=== PATIENT | female | born 1950 | race African-American/Black ===

== ENCOUNTER 2025-04-14 16:19 | Inpatient (IN) | payer MEDICARE, SELFPAY ==
[2025-04-14] VITALS (16 sets, daily range): BP systolic 164–185; BP diastolic 72–81; PULSE 95–109; RESP 18–29; TEMP 37.5–37.7; O2SAT 91–99; BMI 39.8; BMI 39.9
--- NOTE | ~2025-04-14 | XR_ITS ---
CHEST RADIOGRAPH, PA AND LATERAL CLINICAL HISTORY: productive cough . COMPARISON: None available TECHNIQUE: PA and lateral views of the chest. FINDINGS The cardiomediastinal silhouette is unremarkable. The lungs are clear. IMPRESSION: No focal infiltrate or effusion. Reviewed, dictated and finalized at location A.
--- NOTE | ~2025-04-14 | CT_ITS ---
EXAMINATION: CT abdomen pelvis wo con DATE: 04/14/2025 17:09 INDICATION: left flank pain, LLQ abd pain TECHNIQUE: Computed tomography (CT) of the abdomen and pelvis was performed without intravenous contr ast. Automated exposure control and iterative reconstruction technique were employed. The dose-length product was 489.03 mGy-cm. COMPARISON: 05/08/2006. FINDINGS: Lower thorax: Mitral and aortic calcification. Liver: Normal. Biliary/Gallbladder: Gallbladder is normal. No bile duct dilation. Pancreas: No mass or duct dilation. Spleen: Normal. Adrenals:No mass. Kidneys: No suspicious mass, obstructing stone, or hydronephrosis. Right inferior renal cortical scar ring. Small exophytic right lower pole cyst. Mild left perinephric stranding. GI tract: No small or large bowel dilation. Normal appendix. Diverticulosis without diverticulitis. Mesentery/Peritoneum: No ascites, mass, or free air. Retroperitoneum: No mass. Atherosclerotic calcifications of intra-abdominal arterial vessels. Pelvis: Normal bilateral ovaries. Uterine calcification likely representing an old fibroid. Nondisten ded urinary bladder. Asymmetric anterolateral bladder wall thickening. Intramural bladder wall fat. Soft Tissues: Moderate fat-containing periumbilical and small foci containing umbilical hernias. The umbilical hernia contains a small portion of partially herniated large bowel. Bones: No acute osseous finding. IMPRESSION: No CT evidence of nephrolithiasis or obstructive uropathy. Mild left perinephric stranding, consider pyelonephritis in the differential. Fat-containing umbilical and periumbilical hernias, with partial herniation of a small portion of lar ge bowel into the umbilical hernia, without signs of inflammation or obstruction. Suggestion of asymmetric bladder wall thickening, consider referral for cystoscopy to exclude a mass. Reviewed, dictated and finalized at location K. IMPRESSION: No CT evidence of nephrolithiasis or obstructive uropathy. Mild left perinephric stranding, consider pyelonephritis in the differential. Fat-containing umbilical and periumbilical hernias, with partial herniation of a small portion of large bowel into the umbilical hernia, without signs of infl ammation or obstruction. Suggestion of asymmetric bladder wall thickening, consider referral for cystosc opy to exclude a mass.
--- OUTSIDE RECORDS SUMMARY | 2025-04-14 16:21 | XMS_ITS | Clinical Summary ---
Author Organization [facility] Address [address] [place] [address] Care Team Providers Care Bundler Seasonal Greenery Name Role Phone Sohail Varner MD Primary Care Provider Sharonda roberts Source Comments [facility],non-owned Affiliates and Associated Physician Practices is amultiple site organization consisting of ambulatory clinics and hospital sitesin [place], [place]. This disclosure is being madepursuant to the Care Everywhere program and may not contain all information available regarding this patient. Last updated 18.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 Gender Identity Not on file Sexual Orientation Not on file Plan of Treatment Health Maintenance Due Date Last Done Comments BONE DENSITY TESTING 1950 COLOGUARD (AGES 45-75) - COL ON CA SCREENING 1952 COLON MONITORING 1952 COLONOSCOPY - COLON CA SCREENING 1952 CT COLONOGRAPHY - COLON CA SCREENING 1952 Colorectal Cancer Screening 1952 FIT - COLON CA SCREENING 1952 FLEX SIG - COLON CA SCREENING 1952 LIPID TESTING 1952 MAMMOGRAM 1952 HEPATITIS C SCREENING 11/18/1970 DTAP/TDAP/TD VACCINES (1 - Tdap) 11/23/1971 PNEUMOCOCCAL VACCINE 50+ (1 of 1 - PCV) 2002 ZOSTER VACCINE (1 of 2) 2002 COVID-19 VACCINE ( - 2023-2 5 season) 2024 DEPRESSION SCREENING 09/17/2024 INFLUENZA VACCINE (#1) 2025 Respiratory Syncytial Virus (RSV) Vaccine Pt: or over 60 yrs (1 - 1-dose 75+ series) 11/23/2027 HEPATITIS B VACCINE Aged Out No longe r eligible based on patient's age to complete this topic HIB VACCINE Aged Out No longer eligi ble based on patient's age to complete this topic HPV VACCINE Aged Out No longer eligi ble based on patient's age to complete this topic MENINGOCOCCAL (Group B) VACC INE SHARED DECISION-MAKING Aged Out No longer eligibl e based on patient's age to complete this topic MENINGOCOCCAL GROUPS A/C/Y/W VACCINE Aged Out No longer eligible b ased on patient's age to complete this topic Care Teams Bundler Seasonal Greenery Relationship Specialty Start Date End Date Sohail Varner MD PCP - General Internal Medicine 09/20/10
--- OUTSIDE RECORDS SUMMARY | 2025-04-14 16:21 | XMS_ITS | Continuity of Care Document ---
Author Organization [facility] Address [address] [place] [address] Phone Care Team Providers Care Kaiawhina Kura Ka[place]apa Maori Name Role Phone Woods OD, John Unavailable Unavailable Procedures Procedure Date Office/outpatient Visit, Est Contact Lens Check Contact Lens Check Contact Lens Hydrophilic, Spherical Tax - Medical No Charge Glasses Check No Charge Contact Lens Check No Charge Contact Lens Check No Charge Contact Lens Check No Charge Contact Lens Check Advance Directives Directive Yes / No Effective Date File Name No Information Encounters Encounter Description Practice Location Reason(s) For Visit Diagnoses Date Provider Providers Copied on Encounter Office/outpat ient Visit, Est [facility], [address] [place] [address] [address], [place], [place], [id number], [place] tel:[phone] [facility] No Information 4-201 0 Woods OD John. [address] , [address] [facility], [place], [address], [place]. tel:[phone] [facility], [address] [place] [address] [address], [place], [place], [address], [place] tel:[phone] [facility] No Information 0-201 0 Woods OD John. [address] , [address], [place], [address], [place]. tel:[phone] [facility], [address] [place] [address] [address], [place], [place], [address], tel:[phone] [facility] No Information Dec-1 7-200 9 Woods OD John. [address] , [address], [place], [place], [facility], [place]. tel:[phone] [facility], [address] [place] [address] [address], [place], [place], [address], [place] tel:[phone] [facility] No Information Sep-0 3-200 9 Woods OD John. [address] , [address], [place], [facility], [place]. tel:[phone] [facility], [address] [place] [address] [address], [place], [place], [address], [place] tel:[phone] [facility] No Information Aug-2 7-200 9 Woods OD John. [address] , [address], [place], [facility], [place]. tel:[phone] [facility], [address] [place] [address] [address], [place], [place], [address], [place] tel:[phone] [facility] No Information Isacc-0 2-200 9 Woods OD John. [address] , [address], [place], [facility], [place]. tel:[phone] [facility], [address] [place] [address] [address], [place], [place], [address], [place] tel:[phone] [facility] No Information May-0 1-200 9 Woods OD John. [address] , [address], [place], [facility], [place]. tel:[phone] [facility], [address] [place] [address] [address], [place], [place], [address], [place] tel:[phone] [facility] No Information 4-200 9 Woods OD John. [address] , [address], [place], [address], [place]. tel:[phone] Family History Family Member Type Diagnosis Age At Onset No Information Payers Payer name Insurance type Covered green party ID Authoriza tion(s) No Information Social History Type Description Quantity Date Captured Comments Sex Female Smoking Status No Information Chief Complaint And Reason For Visit No Information Reason For Referral Reason For Referral No Information History Of Present Illness Encounter Date Complaint History Of Prese nt Illness No Information Functional Status Date Functional Assessmen t No Information Instructions Date Instruction Additional Infor mation No Information Assessments Type Assessment Date No Information Patient Care Teams Name Effective Dates (start - stop) Status Members No Information
--- NOTE | 2025-04-14 16:36 | ED_ITS ---
HPI - Female Genitourinary General Chief complaint: Urogenital-Female <Mone García PA-C - Last Filed: 04/14/25 16:38> Stated complaint: hematuria <Mone García PA-C - Last Filed: 04/14/25 16:38> Time Seen by Provider: 04/14/25 17:32 <Mone García PA-C - Last Filed: 04/14/25 16:38> Focused HPI: 74 y/o F with a hx of HTN presents emergency department with at bedside for left flank pain/left lower quadrant abdominal pain, josep colored urine, nausea, cough for 1 day. Patient states the pain in her left flank radiates to her left lower quadrant and describes it as a cramping sensation. She is concerned she may have urinary tract infection. Also states her urine is dark in color but cannot tell if there is any blood. She denies dysuria. She is reporting a productive cough as well. States she has had a low-grade temperature at home with her T-max being 100.2. She has not taken any antipyretics or pain medications. No history of kidney stones. GENERAL: Well-appearing, well-nourished, and in no acute distress. HEAD: Normocephalic, atraumatic. CHEST: Clear to auscultation. ?No respiratory distress. ABD: Tenderness to palpation of the left CVA region. Abdomen is soft and nontender HEART: Regular rate and rhythm.? NEURO: ?Alert and oriented x3. Patient screened in triage and initial orders placed.? ?Additional care and disposition to be based upon?diagnostic testing and treatment. <Mone García PA-C - Last Filed: 04/14/25 16:38> History of Present Illness HPI Narrative: Agree with HPI. Patient has also been having dyspnea on exertion but no chest pain for <Sarkis Rodriguez MD - Last Filed: 04/14/25 19:26> Related Data Allergies/Adverse reactions: Allergies Allergy/AdvReac Type Severity Reaction Status Date / Time No Known Allergies Allergy Verified 04/14/25 16:50 <Mone García PA-C - Last Filed: 04/14/25 16:38> Review of Systems 2 Review of Systems: All systems reviewed & are unremarkable except as noted in HPI and below <Sarkis Rodriguez MD - Last Filed: 04/14/25 19:26> Constitutional: Constitutional: Reports no additional constitutional complaints <Sarkis Rodriguez MD - Last Filed: 04/14/25 19:26> ENT: Reports system reviewed and no additional complaints, except as documented <Sarkis Rodriguez MD - Last Filed: 04/14/25 19:26> Cardiovascular: Cardiovascular: Reports no additional cardiovascular complaints <Sarkis Rodriguez MD - Last Filed: 04/14/25 19:26> Respiratory: Respiratory: Reports no additional respiratory complaints < Sarkis Rodriguez MD - Last Filed: 04/14/25 19:26> Gastrointestinal: Gastrointestinal: Reports no additional gastrointestinal complaints <Sarkis Rodriguez MD - Last Filed: 04/14/25 19:26> Genitourinary: Genitourinary: Reports no additional female genitourinary complaints <Sarkis Rodriguez MD - Last Filed: 04/14/25 19:26> [facility] Past Medical History Medical History: Medical History (Updated 04/14/25 @ 19:26 by Sarkis Rodriguez MD) Hypertension <Mone García PA-C - Last Filed: 04/14/25 16:38> Surgical History Surgical History: Surgical History (Updated 04/14/25 @ 19:24 by Sarkis Rodriguez MD) No pertinent past surgical history <Mone García PA-C - Last Filed: 04/14/25 16:38> Exam 2 Narrative: GENERAL: Well-appearing, well-nourished, and in no acute distress. HEAD: Normocephalic, atraumatic. ENT: Mucous membranes moist. CHEST: Clear to auscultation. No respiratory distress. HEART: Tachycardic and regular. Normal peripheral pulses. ABDOMEN: Soft, nontender, nondistended. EXTREMITIES: Normal range of motion. No edema. SKIN: Warm, dry, no rash. NEURO: Alert and oriented x3. PSYCH: Normal mood and affect. <Sarkis Rodriguez MD - Last Filed: 04/14/25 19:26> Course Course Emergency Course: Patient resting comfortably. Being hydrated for elevated heart rate. Received Tylenol for elevated temperature. EKG with LVH with strain pattern with ST depression and inverted T-waves. Troponin mildly elevated but no chest pain. Cardiology consulted. Admit to hospitalist service. Ceftriaxone for pyelonephritis. <Sarkis Rodriguez MD - Last Filed: 04/14/25 19:26> Vital Signs Vital signs: Vital Signs Temperature 99.9 F H 04/14/25 16:20 Pulse Rate 105 H 04/14/25 16:20 Respiratory Rate 20 04/14/25 16:20 Blood Pressure 185/78 H 04/14/25 16:20 Pulse Oximetry 96 04/14/25 16:20 Oxygen Delivery Room Air 04/14/25 16:20 Temperature 99.8 F H 04/14/25 17:50 Pulse Rate 103 H 04/14/25 18:58 Respiratory Rate 29 H 04/14/25 18:45 Blood Pressure 164/75 H 04/14/25 18:31 Pulse Oximetry 98 04/14/25 18:45 Oxygen Delivery Room Air 04/14/25 17:33 <Mone García PA-C - Last Filed: 04/14/25 16:38> Vital Signs Temperature 99.9 F H 04/14/25 16:20 Pulse Rate 105 H 04/14/25 16:20 Respiratory Rate 20 04/14/25 16:20 Blood Pressure 185/78 H 04/14/25 16:20 Pulse Oximetry 96 04/14/25 16:20 Oxygen Delivery Room Air 04/14/25 16:20 Temperature 99.8 F H 04/14/25 17:50 Pulse Rate 103 H 04/14/25 18:58 Respiratory Rate 29 H 04/14/25 18:45 Blood Pressure 164/75 H 04/14/25 18:31 Pulse Oximetry 98 04/14/25 18:45 Oxygen Delivery Room Air 04/14/25 17:33 <Sarkis Rodriguez MD - Last Filed: 04/14/25 19:26> MDM - Female Genitourinary Lab Data Result diagrams: 04/14/25 16:49 04/14/25 16:49 <Mone García PA-C - Last Filed: 04/14/25 16:38> Labs: Lab Results 07/29/25 07/29/25 Range/Units 16:49 17:39 WBC 6.9 (4.5-10.0) K/mm3 RBC 4.41 (4.2-5.4) M/mm3 Hgb 13.2 (12.0-15.0) g/dL Hct 39.2 (37.0-47.0) % MCV 88.9 (80-100) fl MCH 29.9 (26-34) pg MCHC 33.7 (32-36) g/dl RDW 13.5 (11.5-14.5) % Plt Count 215 (150-375) k/mm3 MPV 10.6 H (7.4-10.4) fl Immature Gran % (Auto) 0.6 H (0-0.5) % Neut % (Auto) 71.0 (45.5-73.1) % Lymph % (Auto) 15.2 L (18.3-44.2) % [place] % (Auto) 10.6 H (2.6-8.5) % Eos % (Auto) 2.3 (0-4.4) % Baso % (Auto) 0.3 (0.2-1.2) % Lymph # (Auto) 1.05 (0.9-3.2) K/mm3 [place] # (Auto) 0.7 H (0.1-0.6) K/mm3 Eos # (Auto) 0.2 (0-0.3) K/mm3 Baso # (Auto) 0.0 (0.0-0.1) K/mm3 Abs Immat Gran (auto) 0.04 H (0.00-0.031) K/mm3 Absolute Neuts (auto) 4.9 (1.3-6.7) K/mm3 Absolute Nucleated RBC 0.000 (0.0-0.012) K/mm3 Nucleated RBC % 0.0 (0.0-0.2) % Sodium 140 (137-145) mmol/L Potassium 3.6 (3.4-5.0) mmol/L Chloride 107 (98-107) mmol/L Carbon Dioxide 24 (22-30) mmol/L Anion Gap 9 (4-12) mmol/L BUN 5 L (7-17) mg/dL Creatinine 0.86 (0.7-1.0) mg/dL Estim Creat Clear Calc 61 ml/min Estimated GFR > 60 (59 - ) Glucose 107 (65-110) mg/dL Calcium 10.0 (8.4-10.2) mg/dL Total Bilirubin 0.7 (0.2-1.3) mg/dL AST 31 (14-36) U/L ALT 24 (6-35) U/L Alkaline Phosphatase 76 (38-126) U/L Troponin I 0.042 H* (0.000-0.034) ng/mL Total Protein 7.8 (6.3-8.2) g/dL Albumin 4.1 (3.5-5.1) g/dL Urine Color Dark red H (Yellow) Urine Appearance Turbid H (Clear) Urine pH 6.5 (5.0-9.0) Ur Specific [place] 1.015 (1.001-1.035) Urine Protein 3+ H (Negative) mg/dL Urine Glucose (UA) Negative (Negative) mg/dL Urine Ketones Trace H (Negative) mg/dL Ur Blood (Man) 3+ H (Negative) Urine Nitrate Positive H (Negative) Urine Bilirubin Negative (Negative) Urine Urobilinogen 0.2 (<2.0) mg/dL Leukocyte Esterase Rfl Trace H (Negative) NUHA/UL Urine RBC 51-100 H (0-2) /hpf Urine WBC 4-6 H (0-3) /hpf Ur Squamous Epith Cells Occasional (Few) /hpf Urine Bacteria 3+ H (None) /hpf Influenza A (RT-PCR) Negative (Negative) Influenza B (RT-PCR) Negative (Negative) RSV (RT-PCR) Negative (Negative) SARS-CoV-2 RNA (RT-PCR) Negative (Negative) <Mone García PA-C - Last Filed: 04/14/25 16:38> Lab Results 04/14/25 04/14/25 Range/Units 16:49 17:39 WBC 6.9 (4.5-10.0) K/mm3 RBC 4.41 (4.2-5.4) M/mm3 Hgb 13.2 (12.0-15.0) g/dL Hct 39.2 (37.0-47.0) % MCV 88.9 (80-100) fl MCH 29.9 (26-34) pg MCHC 33.7 (32-36) g/dl RDW 13.5 (11.5-14.5) % Plt Count 215 (150-375) k/mm3 MPV 10.6 H (7.4-10.4) fl Immature Gran % (Auto) 0.6 H (0-0.5) % Neut % (Auto) 71.0 (45.5-73.1) % Lymph % (Auto) 15.2 L (18.3-44.2) % [place] % (Auto) 10.6 H (2.6-8.5) % Eos % (Auto) 2.3 (0-4.4) % Baso % (Auto) 0.3 (0.2-1.2) % Lymph # (Auto) 1.05 (0.9-3.2) K/mm3 [place] # (Auto) 0.7 H (0.1-0.6) K/mm3 Eos # (Auto) 0.2 (0-0.3) K/mm3 Baso # (Auto) 0.0 (0.0-0.1) K/mm3 Abs Immat Gran (auto) 0.04 H (0.00-0.031) K/mm3 Absolute Neuts (auto) 4.9 (1.3-6.7) K/mm3 Absolute Nucleated RBC 0.000 (0.0-0.012) K/mm3 Nucleated RBC % 0.0 (0.0-0.2) % Sodium 140 (137-145) mmol/L Potassium 3.6 (3.4-5.0) mmol/L Chloride 107 (98-107) mmol/L Carbon Dioxide 24 (22-30) mmol/L Anion Gap 9 (4-12) mmol/L BUN 5 L (7-17) mg/dL Creatinine 0.86 (0.7-1.0) mg/dL Estim Creat Clear Calc 61 ml/min Estimated GFR > 60 (59 - ) Glucose 107 (65-110) mg/dL Calcium 10.0 (8.4-10.2) mg/dL Total Bilirubin 0.7 (0.2-1.3) mg/dL AST 31 (14-36) U/L ALT 24 (6-35) U/L Alkaline Phosphatase 76 (38-126) U/L Troponin I 0.042 H* (0.000-0.034) ng/mL Total Protein 7.8 (6.3-8.2) g/dL Albumin 4.1 (3.5-5.1) g/dL Urine Color Dark red H (Yellow) Urine Appearance Turbid H (Clear) Urine pH 6.5 (5.0-9.0) Ur Specific [place] 1.015 (1.001-1.035) Urine Protein 3+ H (Negative) mg/dL Urine Glucose (UA) Negative (Negative) mg/dL Urine Ketones Trace H (Negative) mg/dL Ur Blood (Man) 3+ H (Negative) Urine Nitrate Positive H (Negative) Urine Bilirubin Negative (Negative) Urine Urobilinogen 0.2 (<2.0) mg/dL Leukocyte Esterase Rfl Trace H (Negative) NUHA/UL Urine RBC 51-100 H (0-2) /hpf Urine WBC 4-6 H (0-3) /hpf Ur Squamous Epith Cells Occasional (Few) /hpf Urine Bacteria 3+ H (None) /hpf Influenza A (RT-PCR) Negative (Negative) Influenza B (RT-PCR) Negative (Negative) RSV (RT-PCR) Negative (Negative) SARS-CoV-2 RNA (RT-PCR) Negative (Negative) <Sarkis Rodriguez MD - Last Filed: 04/14/25 19:26> Imaging Data Radiologist's impression: ITS Impressions Abdomen/Pelvis CT 04/14/25 17:10 IMPRESSION: No CT evidence of nephrolithiasis or obstructive uropathy. Mild left perinephric stranding, consider pyelonephritis in the differential. Fat-containing umbilical and periumbilical hernias, with partial herniation of a small portion of large bowel into the umbilical hernia, without signs of inflammation or obstruction. Suggestion of asymmetric bladder wall thickening, consider referral for cystoscopy to exclude a mass. Chest X-Ray 04/14/25 17:13 IMPRESSION: No focal infiltrate or effusion. <Sarkis Rodriguez MD - Last Filed: 04/14/25 19:26> ECG Data EKG #1: ECG completion date: 04/14/25 <Sarkis Rodriguez MD - Last Filed: 04/14/25 19:26> ECG completion time: 18:06 <Sarkis Rodriguez MD - Last Filed: 04/14/25 19:26> EKG Interpretation: normal rate (97), sinus rhythm, ST depression (V4 through V6), normal QRS and normal QT <Sarkis Rodriguez MD - Last Filed: 04/14/25 19:26> Discharge Plan Discharge Clinical Impression: Pyelonephritis, Elevated troponin, Dyspnea on exertion <Mone García PA-C - Last Filed: 04/14/25 16:38> Patient Disposition: Still a Patient <Mone García PA-C - Last Filed: 04/14/25 16:38> Condition: Stable <Mone García PA-C - Last Filed: 04/14/25 16:38> Patient Language: Japanese <Mone García PA-C - Last Filed: 04/14/25 16:38> Follow-up/Referrals: PHYSICIAN,FINANCIAL CONSULTANT [Primary Care Provider] - <Mone García PA-C - Last Filed: 04/14/25 16:38>
[2025-04-14] MEDS: ACETAMINOPHEN 500 MG TABLET 1000 MG PO (16:49)
[2025-04-14 17:04] LABS: Hematocrit 39.2 % (37.0-47.0); Hemoglobin 13.2 g/dL (12.0-15.0); Immature Granulocyte Percent A 0.6 % (0-0.5); Lymphocytes Absolute Auto 1.05 K/mm3 (0.9-3.2); Mean Corpuscular HGB Conc 33.7 g/dl (32-36); Mean Corpuscular Hemoglobin 29.9 pg (26-34); Mean Corpuscular Volume 88.9 fl (80-100); Nucleated Red Blood Cells Absolute Auto 0.000 K/mm3 (0.0-0.012); Nucleated Red Blood Cells Perc 0.0 % (0.0-0.2); Platelet Count Result 215 k/mm3 (150-375); Red Blood Count 4.41 M/mm3 (4.2-5.4); White Blood Count 6.9 K/mm3 (4.5-10.0)
[2025-04-14 17:19] LABS: Alanine Aminotransferase 24 U/L (6-35); Albumin Level 4.1 g/dL (3.5-5.1); Alkaline Phosphatase 76 U/L (38-126); Anion Gap 9 mmol/L (4-12); Aspartate Amino Transferase 31 U/L (14-36); Bilirubin,Total 0.7 mg/dL (0.2-1.3); Blood Urea Nitrogen 5 mg/dL (7-17); Calcium 10.0 mg/dL (8.4-10.2); Carbon Dioxide 24 mmol/L (22-30); Chloride 107 mmol/L (98-107); Estimated CRCL calculation 61 ml/min; Estimated Glomerular Filt Rate > 60; Glucose 107 mg/dL (65-110); Potassium 3.6 mmol/L (3.4-5.0); Sodium 140 mmol/L (137-145); Total Protein 7.8 g/dL (6.3-8.2)
[2025-04-14] MEDS: Please add drug allergy info to patient profile. 1 EACH XX (17:28)
[2025-04-14 17:42] LABS: Influenza A QL RT-PCR Negative (Negative); Influenza B QL RT-PCR Negative (Negative); RSV RNA, RT-PCR Negative (Negative); SARS-CoV-2 RNA PCR Negative (Negative)
--- OUTSIDE RECORDS SUMMARY | 2025-04-14 18:00 | XMS_ITS | Continuity of Care Document ---
Author Organization [facility] Address [address] [place] [address] Phone Care Team Providers Care Lehr Loader Name Role Phone Woods OD, John Unavailable [...] Copied on Encounter Office/outpat ient Visit, Est [facility], [address] [place] [address] [address], [place], [place], [id number], [place] tel:[phone] [facility] No Information 4-201 0 Woods OD John. [address] , [address] [facility], [place], [address], [place]. tel:[phone] [facility], [address] [place] [address] [address], [place], [place], [address], [place] tel:[phone] [facility] No Information 0-201 0 Woods OD John. [address] , [address], [place], [address], [place]. tel:[phone] [facility], [address] [place] [address] [address], [place], [place], [id number], tel:[phone] [facility] No Information Dec-1 7-200 9 Woods OD John. [address] , [address], [place], [facility], [place]. tel:[phone] [facility], [address] [place] [address] [address], [place], [place], [address], [place] tel:[phone] [facility] No Information Sep-0 3-200 9 Woods OD John. [address] , [address], [place], [facility], [place]. tel:[phone] [facility], [address] [place] [address] [address], [place], [place], [address], [place] tel:[phone] [facility] No Information Aug-2 7-200 9 Woods OD John. [address], [place], [facility], [place]. tel:[phone] [facility], [address] [place] [address] [address], [place], [place], [address], [place] tel:[phone] [facility] No Information Isacc-0 2-200 9 Woods OD John. [address], [place], [facility], [place]. tel:[phone] [facility], [address] [place] [address] [address], [place], [place], [address], [place] tel:[phone] [facility] No Information May-0 1-200 9 Woods OD John. [address], [place], [facility], [place]. tel:[phone] [facility], [address] [place] [address] [address], [place], [place], [address], [place] tel:[phone] [facility] No Information 4-200 9 Woods OD John. [address] , [address], [place], [address], [place]. tel:[phone] Family History Family Member Type Diagnosis Age At Onset No Information Payers Payer name Insurance type Covered democrat ID Authoriza tion(s) No Information Social History [...]
--- OUTSIDE RECORDS SUMMARY | 2025-04-14 18:00 | XMS_ITS | Clinical Summary ---
Author Organization [facility] Address [address] [facility] [place] [address] Care Team Providers Care Circuit Rider Name Role Phone Sohail Varner MD Primary Care Provider Sharonda roberts Source Comments [facility] [employer],non-owned Affiliates and Associated Physician Practices is amultiple site organization consisting of ambulatory clinics and hospital sitesin [place], [place], [place] and [place]. This disclosure is being madepursuant to the Care Everywhere program and may not contain all information available regarding this patient. 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
--- NOTE | 2025-04-14 18:04 | ECG_ITS ---
Test Date: 2025-04-14 18:06:23 Measurements Intervals [place] Rate: 97 P: 59 AL: 155 QRS: 48 QRSD: 87 T: 214 QT: 337 QTc: 429 Interpretive Statements SINUS RHYTHM POSSIBLE LEFT ATRIAL ENLARGEMENT [-0.1mV P-WAVE IN V1/V2] LEFT VENTRICULAR HYPERTROPHY AND ST-T CHANGE [VOLTAGE CRITERIA PLUS ST/T ABNORMALITY] ABNORMAL ECG No previous ECG available for comparison Electronically Signed On 04-15-2025 08:10:09 CDT by Kali Hernandez M.D.
[2025-04-14 18:26] LABS: Add Urine Microscopic? YES; Appearance Urine Turbid (Clear); Specific Grav Ur 1.015 (1.001-1.035)
[2025-04-14 18:27] LABS: Glucose Urine UA Negative (Negative); Leukocyte Esterase Ur Trace LEU/UL (Negative); Nitrate Urine Positive (Negative)
[2025-04-14] MEDS: SODIUM CHLORIDE 0.9% IV 1,000 ML 999 ML IV CONT (18:34)
[2025-04-14 18:49] LABS: Troponin I 0.042 ng/mL (0.000-0.034)
[2025-04-14] MEDS: cefTRIAXone 1 GM in SODIUM CHLORIDE 0.9% IV 50 ML 100 ML IVPB (18:57)
--- NOTE | 2025-04-14 19:09 | PC.NURSE ---
EDP DR. Banks did not want blood cultures
[2025-04-14] MEDS: ASPIRIN 81 MG CHEWABLE TABLET 324 MG PO (19:11)
--- NOTE | 2025-04-14 19:57 | PM.IMHP ---
H&P: HPI History of Present Illness Date/Time: 04/14/25 19:57 Chief Complaint: Left flank pain, left lower quadrant abdominal pain Narrative: This is a 74-year-old female with a history of hypertension who presents to [facility] ER on 04/14/2025 with left lower quadrant pain, left flank pain, nausea, productive cough, low-grade fever 100.2, urine is dark in color. Patient is accompanied by her Dr. Slater an anesthesiologist. She has been in her usual state of health until the symptoms emerged 1 day prior to admission. Of note, remotely, patient was prescribed an albuterol inhaler and also uses Trelegy on and off prescribed by her primary doctor for complaint of intermittent shortness of breath. She has never had any lung function test. She is nonsmoker, not exposed to secondhand smoke. Retired nurse. Denies illicit drug use, excessive alcohol use. Temperature on arrival 105 improved after Tylenol. Blood pressure elevated at 164/75. WBC 6.9, hemoglobin 13.2, serum creatinine 0.86, urinalysis demonstrating dark red turbid urine, 3+ protein, positive nitrates, leukocyte esterase, WBC 4-6, urine bacteria 3+. Quad viral screen negative. Chest x-ray without effusions or pulmonary edema. Abdomen pelvis CT without contrast did not reveal nephrolithiasis but left perinephric stranding, fat containing umbilical and periumbilical hernia, asymmetry of bladder wall thickening. She was given 1 L normal saline bolus, Tylenol 1000 mg p.o. x1, ceftriaxone 1 g IV x1, aspirin 325 p.o. EKG with evidence of left ventricular hypertrophy. Troponin 0.042. Cardiology consultation conducted from ER. Recommended aspirin. Patient without chest pain. Review of Systems Review of Systems: All systems reviewed & are unremarkable except as noted in HPI and below (HPI/subjective) [facility] Past Medical History Medical History (Updated 04/14/25 @ 19:26 by Sarkis Rodriguez MD) Hypertension Surgical History Surgical History (Updated 04/14/25 @ 19:24 by Sarkis Rodriguez MD) No pertinent past surgical history Meds Home Medications and Allergies Allergies Allergy/AdvReac Type Severity Reaction Status Date / Time No Known Allergies Allergy Verified 04/14/25 16:50 Vital Signs Vital Signs - 24 hr 04/14/25 16:20 04/14/25 17:33 04/14/25 17:50 Temperature 99.9 F H 99.8 F H 99.8 F H Pulse Rate 105 H 109 H 101 H Respiratory Rate 20 19 20 Blood Pressure 185/78 H 180/72 H Pulse Oximetry 96 93 94 Oxygen Delivery Room Air Room Air 04/14/25 18:05 04/14/25 18:23 04/14/25 18:30 Temperature Pulse Rate 100 99 101 H Respiratory Rate 21 H 21 H 23 H Blood Pressure Pulse Oximetry 99 94 91 Oxygen Delivery 04/14/25 18:31 04/14/25 18:45 04/14/25 18:58 Temperature Pulse Rate 103 H 100 103 H Respiratory Rate 24 H 29 H Blood Pressure 164/75 H Pulse Oximetry 93 98 Oxygen Delivery Exam Const: General: comfortable and no acute distress HENMT: Mouth: Yes moist mucous membranes Eyes: Pupils: Equal, round and reactive pupils present Neck: Neck: supple Resp: Effort & Inspection: normal respiratory effort Auscultation: clear to auscultation bilaterally Cardio: Rate: regular rate Rhythm: regular rhythm GI: Inspection: non-distended GI Palp: Yes Soft to palpation and No Tenderness to palpation present (GI) : General: Yes bladder normal to palpation Neuro: Motor exam (neuro): 5/5 motor strength present throughout Extrem: General: no edema H&P: Results Labs Labs: Short CBC 04/14/25 Range/Units 16:49 WBC 6.9 (4.5-10.0) K/mm3 Hgb 13.2 (12.0-15.0) g/dL Hct 39.2 (37.0-47.0) % Plt Count 215 (150-375) k/mm3 [facility] 04/14/25 16:49 Sodium 140 Potassium 3.6 Chloride 107 Carbon Dioxide 24 BUN 5 L Creatinine 0.86 Glucose 107 Calcium 10.0 Cardiac Enzymes 04/14/25 Range/Units 16:49 Troponin I 0.042 H* (0.000-0.034) ng/mL Liver Function 04/14/25 Range/Units 16:49 Total Bilirubin 0.7 (0.2-1.3) mg/dL AST 31 (14-36) U/L ALT 24 (6-35) U/L Alkaline Phosphatase 76 (38-126) U/L Albumin 4.1 (3.5-5.1) g/dL Urine 04/14/25 Range/Units 17:39 Urine Color Dark red H (Yellow) Urine Appearance Turbid H (Clear) Urine pH 6.5 (5.0-9.0) Ur Specific [place] 1.015 (1.001-1.035) Urine Protein 3+ H (Negative) mg/dL Urine Glucose (UA) Negative (Negative) mg/dL Assessment and Plan Assessment and plan (1) Elevated troponin: Code(s): R79.89 - Other specified abnormal findings of blood chemistry Status: Acute (2) Dyspnea on exertion: Code(s): R06.09 - Other forms of dyspnea Status: Acute (3) Pyelonephritis: Code(s): N12 - Tubulo-interstitial nephritis, not specified as acute or chronic Status: Acute Plan This is a 74-year-old female with a history of hypertension who presents to [facility] ER on 04/14/2025 with left lower quadrant pain, left flank pain, nausea, productive cough, low-grade fever 100.2, urine is dark in color. Patient is accompanied by her Dr. Slater an anesthesiologist. She has been in her usual state of health until the symptoms emerged 1 day prior to admission. Of note, remotely, patient was prescribed an albuterol inhaler and also uses Trelegy on and off prescribed by her primary doctor for complaint of intermittent shortness of breath. She has never had any lung function test. She is nonsmoker, not exposed to secondhand smoke. Retired nurse. Denies illicit drug use, excessive alcohol use. Temperature on arrival 105 improved after Tylenol. Blood pressure elevated at 164/75. WBC 6.9, hemoglobin 13.2, serum creatinine 0.86, urinalysis demonstrating dark red turbid urine, 3+ protein, positive nitrates, leukocyte esterase, WBC 4-6, urine bacteria 3+. Quad viral screen negative. Chest x-ray without effusions or pulmonary edema. Abdomen pelvis CT without contrast did not reveal nephrolithiasis but left perinephric stranding, fat containing umbilical and periumbilical hernia, asymmetry of bladder wall thickening. She was given 1 L normal saline bolus, Tylenol 1000 mg p.o. x1, ceftriaxone 1 g IV x1, aspirin 325 p.o. EKG with evidence of left ventricular hypertrophy. Troponin 0.042. Cardiology consultation conducted from ER. Recommended aspirin. Patient without chest pain. ----- Complicated acute UTI with left-sided pyelonephritis. Pending urine culture. Continue ceftriaxone daily. Patient feeling better after ER treatment. She does have resting slight expiratory wheeze with coarse breath sounds. reports she does snore at night. As mentioned above she received day albuterol inhaler but no official workup. Will add a BNP but she only has trace edema and her lung sounds are clear. She would benefit from an outpatient workup with pulmonology. With acute on chronic symptoms with productive sputum is possible she has bronchitis, quad viral screen negative. Administer DuoNeb x1 and p.r.n.. Will continue to monitor. Elevated troponin. Continue to trend. No chest pain. Cardiology consultation pending. Received aspirin 324 mg p.o. x1. Medication reconciliation pending. 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 Patient wishes to be full code. SCDs. Heart healthy diet. Patient lives at home with her . Independent at baseline. Hospitalist MIPS Advance Care Plan I have confirmed that the patient's Advanced Care Plan is present, code status is documented, or surrogate decision maker is listed in patient medical record.: Yes Medication Reconciliation I have utilized all available resources to obtain, update and review the patients current medications (includes all prescriptions, OTC, herbals, cannabis, and nutritional supplements).: Yes
[2025-04-14] MEDS: IPRATROPIUM 0.5 MG/ALBUTEROL SULFATE 2.5 MG AMPUL.NEB 3 ML INHALATION ×2 (20:12→23:15)
[2025-04-14 20:14] LABS: Troponin I 0.048 ng/mL (0.000-0.034)
[2025-04-14 20:40] LABS: NT Pro B Type Natriuretic Pept 1020 pg/mL (19.9-100)
--- NOTE | 2025-04-14 20:45 | ADMGEN ---
This patient, Ana Paula Slater, was admitted to IMU Room 209-01 via bed with one tech and no issues. Patient/family oriented to hospital policies and general routines including ID bracelet, bed and alarms, visiting hours, pain management, procedures, bathroom and other care routines, personal items, smoking policy, room service/diet, and visiting hours. Information on how to activate the Rapid Response Team has been discussed. Patient/Family are encouraged to report perceived risks to care and to ask questions if they do not understand what they are told or what they should do.
[2025-04-14] MEDS: VERAPAMIL HCL 180 MG TABLET ER PO (23:04)
[2025-04-14 23:58] LABS: Troponin I 0.054 ng/mL (0.000-0.034)
[2025-04-15] VITALS (23 sets, daily range): BP systolic 137–183; BP diastolic 54–87; PULSE 70–987; RESP 16–24; TEMP 37.1–37.9; O2SAT 94–100
[2025-04-15] MEDS: ACETAMINOPHEN 325 MG TABLET 650 MG PO (04:07)
[2025-04-15] MEDS: METOPROLOL SUCCINATE EXT REL 25 MG TABCR PO (04:15)
[2025-04-15 05:34] LABS: Hematocrit 35.8 % (37.0-47.0); Hemoglobin 12.2 g/dL (12.0-15.0); Immature Granulocyte Percent A 0.3 % (0-0.5); Lymphocytes Absolute Auto 1.03 K/mm3 (0.9-3.2); Mean Corpuscular HGB Conc 34.1 g/dl (32-36); Mean Corpuscular Hemoglobin 30.0 pg (26-34); Mean Corpuscular Volume 88.0 fl (80-100); Nucleated Red Blood Cells Absolute Auto 0.000 K/mm3 (0.0-0.012); Nucleated Red Blood Cells Perc 0.0 % (0.0-0.2); Platelet Count Result 191 k/mm3 (150-375); Red Blood Count 4.07 M/mm3 (4.2-5.4); White Blood Count 6.5 K/mm3 (4.5-10.0)
[2025-04-15 05:59] LABS: Anion Gap 6 mmol/L (4-12); Blood Urea Nitrogen 5 mg/dL (7-17); Calcium 9.4 mg/dL (8.4-10.2); Carbon Dioxide 23 mmol/L (22-30); Chloride 105 mmol/L (98-107); Estimated CRCL calculation 71 ml/min; Estimated Glomerular Filt Rate > 60; Glucose 108 mg/dL (65-110); Magnesium 1.8 mg/dL (1.6-2.3); Potassium 3.6 mmol/L (3.4-5.0); Sodium 134 mmol/L (137-145)
--- NOTE | 2025-04-15 06:00 | ECHO_ITS ---
Patient Info Name: Ana Paula Slater Age: 74 years : 1950 Gender: Female Ht: 64 in Wt: 233 lbs BSA: 2.24 m2 HR: 74 bpm BP: 150 / 77 mmHg Heart Rhythm: Sinus Rhythm Technical Quality: Good Exam Date: 04/15/2025 12:01 PM Patient Status: I Admit Date: 04/15/2025 Exam Type: CA echo doppler color flow Complete two-dimensional, color flow and Doppler transthoracic echocardiogram is performed. Staff Referring Physician: Mone García Spacer Type Bar And Segment: Hina Kennedy Attending Provider: Radha Rai Summary 1. Complete two-dimensional, color flow and Doppler transthoracic echocardiogram is performed. 2. Concentric left ventricular hypertrophy with hyperdynamic contractility, near obliteration of left ventricular cavity in end systole. 3. Grade 1 diastolic noncompliance. 4. No significant valvular dysfunction. Left Ventricle Left ventricular chamber dimension is normal. Left ventricular systolic function is hyperdynamic, estimated at >70. There is moderate concentric increased left ventricular wall thickness. The left ventricular diastolic function is grade I diastolic dysfunction. Right Ventricle Right ventricular chamber dimension is normal. Left Atria Left atrial chamber dimension is normal. Right Atria Right atrial chamber dimension is normal. Aortic Valve The aortic valve is normal. Pulmonic Valve The pulmonic valve is not well visualized. Mitral Valve The mitral valve has normal leaflets. There is trace mitral valve regurgitation. Tricuspid Valve The tricuspid valve leaflets are normal. Pericardium/Pleural The pericardium appears normal. Aorta The aortic root size at the sinus of Valsalva is normal. Left Ventricular Outflow Tract Name Value Normal LVOT 2D LVOT Diameter 2.0 cm LVOT Doppler LVOT Peak Velocity 260 cm/s LVOT Peak Gradient 27 mmHg LVOT Mean Gradient 16 mmHg LVOT VTI 51 cm LVOT VTI/AV VTI Ratio 1.0 LVOT Stroke Volume 157 ml LVOT CO 11.7 l/min LVOT CI 5.2 l/min/m2 Pulmonic Valve Name Value Normal RVOT Doppler RVOT Peak Velocity 89 cm/s RVOT Peak Gradient 3 mmHg PV Doppler PV Peak Velocity 145 cm/s PV Peak Gradient 8 mmHg Mitral Valve Name Value Normal MV Diastolic Function MV E Peak Velocity 61 cm/s MV A Peak Velocity 107 cm/s MV E/A 0.6 MV Decel Time (PW) 299 ms MV Annular TDI MV E/e' (Septal) 12.0 MV E/e' (Lateral) 10.6 MV E/e' (Average) 11.3 Aortic Valve Name Value Normal AV Doppler AV Peak Velocity 264 cm/s AV Peak Gradient 28 mmHg AV Mean Gradient 17 mmHg AV VTI 52 cm AV Area (Cont Eq VTI) 3.0 cm2 >=3.0 AV Area (Cont Eq Philippe) 3.0 cm2 AV DI (Philippe) 0.99 AV Regurgitation 2D LVOT Area 3.1 cm2 Ventricles Name Value Normal LV Dimensions 2D/MM IVS Diastolic Thickness (2D) 1.3 cm 0.6-1.0 LVID Diastole (2D) 4.3 cm 3.8-5.2 LVIW Diastolic Thickness (2D) 1.4 cm 0.6-0.9 LVID Systole (2D) 2.8 cm 2.2-3.5 LVOT Diameter 2.0 cm LV Mass (2D Cubed) 217.96 g 67.00-162.00 LV Mass Index (2D Cubed) 97 g/m2 43-95 Relative Wall Thickness (2D) 0.64 <=0.42 LV Fractional Shortening/Ejection Fraction 2D/MM LV Fractional Shortening (2D) 35 % 27-45 LV EF (2D Teichholz) 64 % LV Diastolic Volume (4C MOD) 104 ml LV EF (4C MOD) 79 % LV Diastolic Volume (2C MOD) 84 ml LV EF (2C MOD) 82 % LV Diastolic Volume (BP MOD) 94 ml 46-106 LV Diastolic Volume Index (BP MOD) 42 ml/m2 29-61 LV Systolic Volume (BP MOD) 24 ml 14-42 LV Systolic Volume Index (BP MOD) 11 ml/m2 8-24 LV EF (BP MOD) 74 % 54-74 LV Diastolic Length (4C) 9.2 cm LV Systolic Length (4C) 7.3 cm LV Stroke Volume (4C MOD) 83 ml Atria Name Value Normal LA Dimensions LA Volume (4C A-L) 36 ml LA Volume (BP A-L) 36 ml RA Dimensions RA Systolic Major Onia Length (4C) 4.7 cm 2.2-2.8 RA Area (4C) 12.2 cm2 <=18.0 Report Signatures
[2025-04-15 06:20] LABS: Troponin I 0.065 ng/mL (0.000-0.034)
--- NOTE | 2025-04-15 07:18 | P.CONCA_ITS ---
Assessment and Plan Assessment and plan (1) Elevated troponin: Code(s): R79.89 - Other specified abnormal findings of blood chemistry Status: Acute (2) Dyspnea on exertion: Code(s): R06.09 - Other forms of dyspnea Status: Acute Plan Elevated troponin without chest pain Shortness of breath Hypertension-not well controlled, SBP in the 150s to 180s range Pyelonephritis-on IV antibiotics Plan: Troponin is elevated but mostly flat. Patient has chest tightness when she coughs but no exertional or other chest pain. She has shortness of breath which could be an anginal equivalent but improves with albuterol inhaler pointing towards a pulmonary pathology. She has not had recent cardiac or pulmonary workup for her shortness of breath. Recommend TTE to evaluate for LVEF and any regional wall motion abnormalities. If there are no regional wall motion abnormalities, then no further cardiac workup at this time. Recommend outpatient ischemia evaluation with stress test after her acute medical problems are resolved Trend troponin to peak EKG p.r.n. for chest pain Continue Aspirin 81 mg daily Check FLP Continue metoprolol and verapamil (home medications) Good risk factor control including blood pressure Check and replace electrolytes as needed to keep potassium greater than 4 and magnesium greater than 2 Management of other medical problems per primary team Follow-up with cardiology in 1 month with outpatient stress test History of Present Illness History of Present Illness Consult date/time: 04/15/25 07:18 Reason For Visit: pyelonephritis, elevated trop Narrative: Patient is a 74-year-old female with past medical history of hypertension on metoprolol and verapamil who presented with chief complaints of left lower quadrant and left flank pain, dark urine, nausea, fever, and productive cough for 1 day. He she states that she has some chest tightness when she coughs. No exertional chest pain. She has been having stable shortness of breath for the past few months. She was prescribed an inhaler for shortness of breath. She states her shortness of breath improves when she uses the inhaler. She has not had any cardiac or pulmonary workup after onset of shortness of breath. She had a stress test many years ago when she had palpitations which was negative. She also had a Holter monitor but did not have any tachy or Andrew arrhythmias requiring treatment. CT abdomen and pelvis showed left perinephric stranding without nephrolithiasis and she is being treated with IV antibiotics for pyelonephritis. Troponin was noted to be elevated and Cardiology is consulted for further recommendations. Patient denies any chest pain with exertion, dizziness, lightheadedness, palpitations, presyncope, syncope, recent weight gain, orthopnea, PND. She reports lower extremity edema. She does not take any diuretic. Workup: WBC: 6.9 Hemoglobin: 13.2 Creatinine: 0.86 Chest x-ray: No effusion or pulmonary edema Troponin: 0.042, 0.048, 0.054, 0.065 EKG: Sinus rhythm with rate of 97, LVH with ST-T changes CT abdomen and pelvis: did not reveal nephrolithiasis but left perinephric stranding, fat containing umbilical and periumbilical hernia, asymmetry of bladder wall thickening. Review of Systems 2 Review of Systems: A complete review of systems was performed and negative other than those mentioned HPI. [facility] Past Medical History Medical History (Updated 04/15/25 @ 18:24 by Kaitlin Bond APRN) Hypertension Surgical History Surgical History (Updated 04/14/25 @ 19:24 by Sarkis Rodriguez MD) No pertinent past surgical history Social History Social History Smoking status: Never smoker Alcohol intake: current Drinks per week: 1 Substance use: never Lack of Transportation: No Lack of Food: Never True Current Housing: I Have Housing Concerned About Future Housing: No Difficulty Paying Gas/Electric Bills: No Difficulty Paying for Meds: No Currently Unemployed: No Education: Bachelor's Degree Difficulty w/ Childcare or Family Care: No Spiritual care concerns: No Meds Home Medications and Allergies Home Medications ?Medication ?Instructions ?Recorded ?Confirmed ?Type albuterol sulfate 90 mcg/actuation 2 puff inhalation Q8H PRN 04/14/25 04/14/25 History aerosol inhaler shortness of breath or wheezing fluticasone fur. 100 mcg-umeclid 1 inh inhalation Q24H PRN 04/14/25 04/14/25 History 62.5 mcg-vilant 25 mcg shortness of breath or wheezing inhalat.powder (Trelegy Ellipta) metoprolol succinate 25 mg 25 mg PO DAILY 04/14/25 04/14/25 History tablet,extended release 24 hr verapamil 180 mg tablet,extended 180 mg PO DAILY 04/14/25 04/14/25 History release Allergies Allergy/AdvReac Type Severity Reaction Status Date / Time No Known Allergies Allergy Verified 04/14/25 16:50 Vital Signs Vital Signs - 24 hr 04/14/25 16:20 04/14/25 17:33 04/14/25 17:50 Temperature 37.7 C H 37.7 C H 37.7 C H Pulse Rate 105 H 109 H 101 H Respiratory Rate 20 19 20 Blood Pressure 185/78 H 180/72 H Pulse Oximetry 96 93 94 Oxygen Delivery Room Air Room Air 04/14/25 18:05 04/14/25 18:23 04/14/25 18:30 Temperature Pulse Rate 100 99 101 H Respiratory Rate 21 H 21 H 23 H Blood Pressure Pulse Oximetry 99 94 91 Oxygen Delivery 04/14/25 18:31 04/14/25 18:45 04/14/25 18:58 Temperature Pulse Rate 103 H 100 103 H Respiratory Rate 24 H 29 H Blood Pressure 164/75 H Pulse Oximetry 93 98 Oxygen Delivery 04/14/25 20:15 04/14/25 20:21 04/14/25 20:45 Temperature 37.5 C Pulse Rate 95 95 106 H Respiratory Rate 18 18 22 H Blood Pressure 182/81 H Pulse Oximetry 98 Oxygen Delivery 04/14/25 21:00 04/14/25 21:00 04/14/25 22:00 Temperature Pulse Rate 100 96 Respiratory Rate Blood Pressure Pulse Oximetry Oxygen Delivery Room Air 04/14/25 23:15 04/14/25 23:24 04/15/25 00:00 Temperature Pulse Rate 101 H 105 H Respiratory Rate 20 22 H Blood Pressure Pulse Oximetry Oxygen Delivery Room Air 04/15/25 00:00 04/15/25 00:00 04/15/25 02:00 Temperature 37.7 C H Pulse Rate 113 H 104 H 98 Respiratory Rate 24 H Blood Pressure 172/81 H Pulse Oximetry 94 Oxygen Delivery 04/15/25 04:00 04/15/25 04:00 04/15/25 04:00 Temperature 37.9 C H Pulse Rate 109 H 102 H Respiratory Rate 22 H Blood Pressure 183/75 H Pulse Oximetry 100 Oxygen Delivery Room Air 04/15/25 04:07 04/15/25 04:15 04/15/25 04:46 Temperature 37.9 C H Pulse Rate 104 H Respiratory Rate Blood Pressure 150/77 H Pulse Oximetry Oxygen Delivery 04/15/25 06:00 Temperature Pulse Rate 95 Respiratory Rate Blood Pressure Pulse Oximetry Oxygen Delivery Exam 2 Narrative: General: Alert oriented x3, no acute distress Neck: Supple, unable to assess JVD Chest: Bilaterally clear to auscultation, no rales or rhonchi Cardiac: S1, S2 +, regular rate, regular rhythm, no murmurs or rubs Extremities: Bilateral lower extremity edema 1+, no skin rash Neurologic: Alert and oriented x3, no focal neurological deficits Results Labs and Meds 04/15/25 05:12 04/15/25 05:12 Lab results: Cardiac Enzymes 04/14/25 04/14/25 04/14/25 Range/Units 16:49 19:43 23:07 AST 31 (14-36) U/L Troponin I 0.042 H* 0.048 H* 0.054 H* (0.000-0.034) ng/mL 04/15/25 Range/Units 05:12 AST (14-36) U/L Troponin I 0.065 H* D (0.000-0.034) ng/mL CBC 04/14/25 04/15/25 Range/Units 16:49 05:12 WBC 6.9 6.5 (4.5-10.0) K/mm3 RBC 4.41 4.07 L (4.2-5.4) M/mm3 Hgb 13.2 12.2 (12.0-15.0) g/dL Hct 39.2 35.8 L (37.0-47.0) % Plt Count 215 191 (150-375) k/mm3 Lymph # (Auto) 1.05 1.03 (0.9-3.2) K/mm3 [place] # (Auto) 0.7 H 0.7 H (0.1-0.6) K/mm3 Eos # (Auto) 0.2 0.2 (0-0.3) K/mm3 Baso # (Auto) 0.0 0.0 (0.0-0.1) K/mm3 Comprehensive Metabolic Panel 04/14/25 04/15/25 Range/Units 16:49 05:12 Sodium 140 134 L (137-145) mmol/L Potassium 3.6 3.6 (3.4-5.0) mmol/L Chloride 107 105 (98-107) mmol/L Carbon Dioxide 24 23 (22-30) mmol/L BUN 5 L 5 L (7-17) mg/dL Creatinine 0.86 0.74 (0.7-1.0) mg/dL Glucose 107 108 (65-110) mg/dL Calcium 10.0 9.4 (8.4-10.2) mg/dL AST 31 (14-36) U/L ALT 24 (6-35) U/L Alkaline Phosphatase 76 (38-126) U/L Total Protein 7.8 (6.3-8.2) g/dL Albumin 4.1 (3.5-5.1) g/dL Intake and Output 04/14/25 04/14/25 04/15/25 15:59 23:59 07:59 Intake Total 1050 240 Balance 1050 240 Intake: IV 1050 Sodium Chloride 0.9% IV 1,000 1000 ml @ 999 mls/hr IV CONT .Q1H1M STA Rx#:[id number] 1 gm In Sodium 50 Chloride 0.9% IV 50 ml @ 100 mls/hr IVPB ONCE STA Rx#: [id number] Oral 240 Other: # Unmeasured Voids 3 Patient Weight 04/15/25 23:59 Weight 105.7 kg
[2025-04-15] MEDS: VERAPAMIL HCL 180 MG TABLET ER PO (08:46)
[2025-04-15 09:59] LABS: Troponin I 0.046 ng/mL (0.000-0.034)
--- NOTE | 2025-04-15 10:37 | P.PNIM_ITS ---
Progress Note: A&P Assessment and Plan (1) Elevated troponin: Code(s): R79.89 - Other specified abnormal findings of blood chemistry Status: Acute Assessment and Plan: Patient without chest pain. EKG with evidence of left ventricular hypertrophy. Troponin 0.06 Cardiology consultation conducted from ER. Aspirin given in ED. BNP 1000. CXR clear. Echo ordered. Continue home metoprolol and verapamil (2) Dyspnea on exertion: Code(s): R06.09 - Other forms of dyspnea Status: Acute Assessment and Plan: Patient has presumed asthma. Remotely, patient was prescribed an albuterol inhaler and also uses Trelegy on and off prescribed by her primary doctor for complaint of intermittent shortness of breath. She has never had any lung function test. She is nonsmoker, not exposed to secondhand smoke. Quad viral screen negative. Wheezing noted. Start bronchodilaotrs. Resume Trelegy (3) Pyelonephritis: Code(s): N12 - Tubulo-interstitial nephritis, not specified as acute or chronic Status: Acute Assessment and Plan: UA is consistent with UTI. UCx collected. Complicated acute UTI with left-sided pyelonephritis. CT noted with left perinephric stranding WBC normal and remains normal. Rocephin started. No BCx collected UCx pending. Follow up on UCx results. Plan CT Abdomen pelvis without contrast asymmetry of bladder wall thickening. She is a nonsmoker. Urology consulted and appreciate their input. Code status - full DVT prophylaxis - SCDs Subjective Date/time seen: 04/15/25 10:37 Interval history: 74yo female with HTN who presents to [facility] ER on 04/14/2025 with left lower quadrant pain, left flank pain, nausea, productive cough, low-grade fever 100.2, urine is dark in color. Assuming care. Chart reviewed. Patient feeling better. Still feels fatigued. Back pain is improved. No chest pain. She has dyspnea on exertion but this is more chronic and there has been no real change. Very remote tobacco use history. She does have a history of seasonal asthma. Exam Narrative: Tm 100.3 99.2 137/68 96 18 99% ra Gen - NARD Chest -inspiratory and expiratory rhonchi with faint end-expiratory wheezes. CV - RRR S1/S2. Telemetry showing no significant dysrhythmias Abd - Soft, NT/ND, Positive BS Back -left CVA tenderness Ext - No pedal edema but left leg slightly larger than right. Negative Homans. Negative cords. Neuro - Alert and oriented. Nonfocal exam. Psych - Nml mood and affect Skin - Warm and dry Objective Data Vital Signs Vital Signs: Vital Signs - 24 hr 04/14/25 16:20 04/14/25 17:33 04/14/25 17:50 Temperature 99.9 F H 99.8 F H 99.8 F H Pulse Rate 105 H 109 H 101 H Respiratory Rate 20 19 20 Blood Pressure 185/78 H 180/72 H Pulse Oximetry 96 93 94 Oxygen Delivery Room Air Room Air 04/14/25 18:05 04/14/25 18:23 04/14/25 18:30 Temperature Pulse Rate 100 99 101 H Respiratory Rate 21 H 21 H 23 H Blood Pressure Pulse Oximetry 99 94 91 Oxygen Delivery 04/14/25 18:31 04/14/25 18:45 04/14/25 18:58 Temperature Pulse Rate 103 H 100 103 H Respiratory Rate 24 H 29 H Blood Pressure 164/75 H Pulse Oximetry 93 98 Oxygen Delivery 04/14/25 20:15 04/14/25 20:21 04/14/25 20:45 Temperature 99.5 F Pulse Rate 95 95 106 H Respiratory Rate 18 18 22 H Blood Pressure 182/81 H Pulse Oximetry 98 Oxygen Delivery 04/14/25 21:00 04/14/25 21:00 04/14/25 22:00 Temperature Pulse Rate 100 96 Respiratory Rate Blood Pressure Pulse Oximetry Oxygen Delivery Room Air 04/14/25 23:15 04/14/25 23:24 04/15/25 00:00 Temperature Pulse Rate 101 H 105 H Respiratory Rate 20 22 H Blood Pressure Pulse Oximetry Oxygen Delivery Room Air 04/15/25 00:00 04/15/25 00:00 04/15/25 02:00 Temperature 99.9 F H Pulse Rate 113 H 104 H 98 Respiratory Rate 24 H Blood Pressure 172/81 H Pulse Oximetry 94 Oxygen Delivery 04/15/25 04:00 04/15/25 04:00 04/15/25 04:00 Temperature 100.3 F H Pulse Rate 109 H 102 H Respiratory Rate 22 H Blood Pressure 183/75 H Pulse Oximetry 100 Oxygen Delivery Room Air 04/15/25 04:07 04/15/25 04:15 04/15/25 04:46 Temperature 100.3 F H Pulse Rate 104 H Respiratory Rate Blood Pressure 150/77 H Pulse Oximetry Oxygen Delivery 04/15/25 06:00 04/15/25 07:35 Temperature 99.2 F Pulse Rate 95 96 Respiratory Rate 18 Blood Pressure 137/68 Pulse Oximetry 99 Oxygen Delivery Intake/Output Intake/Output: Intake & Output 04/12/25 04/13/25 04/14/25 04/15/25 23:59 23:59 23:59 23:59 Intake Total 1050 240 Balance 1050 240 Meds/Results Medications: Active Medications Generic Name Dose Route Start Last Admin Trade Name Freq PRN Reason Stop Dose Admin Acetaminophen 650 mg 04/14/25 19:16 04/15/25 04:07 Acetaminophen 325 Mg Tablet PO 650 mg Q4H PRN Administration Mild Pain (1-3) or Fever Hydrocodone Bitart/Acetaminophen 1 tab 04/14/25 19:16 Hydrocodone/Acetaminophen (*Crx) 5-325 Mg Tablet PO Q4H PRN Pain Rated 4-6 Albuterol 2 puff 04/14/25 22:26 Albuterol Sulfate (*Sp) Aerosol 1 Puff INHALATION Q8HRT PRN shortness of breath or wheezing Albuterol/Ipratropium 3 ml 04/14/25 20:12 04/14/25 23:15 Ipratropium 0.5 Mg/Albuterol Sulfate 2.5 Mg Ampul.Neb 3 Ml INHALATION 3 ml Q6HRT PRN Administration Shortness Of Breath Or Wheezing Fluticasone/Umeclidinium/Vilanterol 1 puff 04/14/25 22:26 Fluticasone/Umeclidin/Vilanter 100-62.5-25 Mcg Ellipta INHALATION Q24H PRN shortness of breath or wheezing Ceftriaxone Sodium 1 gm/ 50 mls @ 100 mls/hr 04/15/25 19:00 Sodium Chloride IVPB Q24H NELLIE Metoprolol Succinate 25 mg 04/15/25 09:00 04/15/25 04:15 Metoprolol Succinate Ext Rel 25 Mg Tabcr PO 25 mg QAM NELLIE Administration Morphine Sulfate 2 mg 04/14/25 19:16 Morphine Sulfate (*Crx) 2 Mg/Ml Inj IV PUSH Q2H PRN Pain Rated 7-10 Ondansetron HCl 4 mg 04/14/25 19:16 Ondansetron Inj 4 Mg/2 Ml Vial IV PUSH Q4H PRN Nausea Perflutren Lipid Microsphere 0 ml 04/14/25 19:16 Perflutren Lipid Microspheres 1.5 Ml Vial Diluted To 10 Ml Total Volume IV PUSH 04/17/25 19:19 ONCE PRN adequate visualization Protocol Verapamil HCl 180 mg 04/14/25 22:30 04/15/25 08:46 Verapamil Hcl 180 Mg Tablet Er PO 180 mg DAILY NELLIE Administration Radiology Results: ITS Impressions Abdomen/Pelvis CT 04/14/25 17:10 IMPRESSION: No CT evidence of nephrolithiasis or obstructive uropathy. Mild left perinephric stranding, consider pyelonephritis in the differential. Fat-containing umbilical and periumbilical hernias, with partial herniation of a small portion of large bowel into the umbilical hernia, without signs of inflammation or obstruction. Suggestion of asymmetric bladder wall thickening, consider referral for cystoscopy to exclude a mass. Chest X-Ray 04/14/25 17:13 IMPRESSION: No focal infiltrate or effusion. Labs Labs: Laboratory Results - last 24 hr 04/14/25 04/14/25 04/14/25 16:49 17:39 19:43 WBC 6.9 RBC 4.41 Hgb 13.2 Hct 39.2 MCV 88.9 MCH 29.9 MCHC 33.7 RDW 13.5 Plt Count 215 MPV 10.6 H Immature Gran % (Auto) 0.6 H Neut % (Auto) 71.0 Lymph % (Auto) 15.2 L [place] % (Auto) 10.6 H Eos % (Auto) 2.3 Baso % (Auto) 0.3 Lymph # (Auto) 1.05 [place] # (Auto) 0.7 H Eos # (Auto) 0.2 Baso # (Auto) 0.0 Abs Immat Gran (auto) 0.04 H Absolute Neuts (auto) 4.9 Absolute Nucleated RBC 0.000 Nucleated RBC % 0.0 Sodium 140 Potassium 3.6 Chloride 107 Carbon Dioxide 24 Anion Gap 9 BUN 5 L Creatinine 0.86 Estim Creat Clear Calc 61 Estimated GFR > 60 Glucose 107 Calcium 10.0 Magnesium Total Bilirubin 0.7 AST 31 ALT 24 Alkaline Phosphatase 76 Troponin I 0.042 H* 0.048 H* NT-Pro-B Natriuret Pep 1020 H Total Protein 7.8 Albumin 4.1 Urine Color Dark red H Urine Appearance Turbid H Urine pH 6.5 Ur Specific [place] 1.015 Urine Protein 3+ H Urine Glucose (UA) Negative Urine Ketones Trace H Ur Blood (Man) 3+ H Urine Nitrate Positive H Urine Bilirubin Negative Urine Urobilinogen 0.2 Leukocyte Esterase Rfl Trace H Urine RBC 51-100 H Urine WBC 4-6 H Ur Squamous Epith Cells Occasional Urine Bacteria 3+ H Influenza A (RT-PCR) Negative Influenza B (RT-PCR) Negative RSV (RT-PCR) Negative SARS-CoV-2 RNA (RT-PCR) Negative 04/14/25 04/15/25 04/15/25 23:07 05:12 09:09 WBC 6.5 RBC 4.07 L Hgb 12.2 Hct 35.8 L MCV 88.0 MCH 30.0 MCHC 34.1 RDW 13.5 Plt Count 191 MPV 10.5 H Immature Gran % (Auto) 0.3 Neut % (Auto) 69.9 Lymph % (Auto) 15.8 L [place] % (Auto) 11.2 H Eos % (Auto) 2.5 Baso % (Auto) 0.3 Lymph # (Auto) 1.03 [place] # (Auto) 0.7 H Eos # (Auto) 0.2 Baso # (Auto) 0.0 Abs Immat Gran (auto) 0.02 Absolute Neuts (auto) 4.6 Absolute Nucleated RBC 0.000 Nucleated RBC % 0.0 Sodium 134 L Potassium 3.6 Chloride 105 Carbon Dioxide 23 Anion Gap 6 BUN 5 L Creatinine 0.74 Estim Creat Clear Calc 71 Estimated GFR > 60 Glucose 108 Calcium 9.4 Magnesium 1.8 Total Bilirubin AST ALT Alkaline Phosphatase Troponin I 0.054 H* 0.065 H* D 0.046 H* D NT-Pro-B Natriuret Pep Total Protein Albumin Urine Color Urine Appearance Urine pH Ur Specific [place] Urine Protein Urine Glucose (UA) Urine Ketones Ur Blood (Man) Urine Nitrate Urine Bilirubin Urine Urobilinogen Leukocyte Esterase Rfl Urine RBC Urine WBC Ur Squamous Epith Cells Urine Bacteria Influenza A (RT-PCR) Influenza B (RT-PCR) RSV (RT-PCR) SARS-CoV-2 RNA (RT-PCR)
[2025-04-15] MEDS: ASPIRIN 81 MG CHEWABLE TABLET PO (12:19)
[2025-04-15 13:57] LABS: Cholesterol 173 mg/dL (0-200); HDL Direct 61 mg/dL; Triglycerides 64 mg/dL (<150)
--- NOTE | 2025-04-15 18:16 | WPDURCON ---
Assessment and Plan Assessment and plan (1) Pyelonephritis: Code(s): N12 - Tubulo-interstitial nephritis, not specified as acute or chronic Status: Acute Plan 74y old female with flank pain and UTI -CT AP reveals No suspicious mass, obstructing stone, or hydronephrosis. Right inferior renal cortical scarring. Small exophytic right lower pole cyst. Mild left perinephric stranding.Nondistended urinary bladder. Asymmetric anterolateral bladder wall thickening. Intramural bladder wall fat. -wbc wnl -kidney function wnl -urine culture pending. culture driven antibiotic therapy per primary service. -follow up in office in the next 2-3 weeks after resolution of UTI for Cystoscopy to investigate CT findings. Urology Consult Note HPI Date Seen: 04/15/25 Requesting Physician: Radha Rai MD Primary Care Provider: OUTBOARD MOTORBOAT RIGGER PHYSICIAN Consult Narrative Narrative: Ana Paula Slater is a 74 year old female with a hx of HTN presents emergency department with at bedside for left flank pain/left lower quadrant abdominal pain, josep colored urine, nausea, cough for 1 day. Patient states the pain in her left flank radiates to her left lower quadrant and describes it as a cramping sensation. She is concerned she may have urinary tract infection. Also states her urine is dark in color but cannot tell if there is any blood. She denies dysuria. She is reporting a productive cough as well. States she has had a low-grade temperature at home with her T-max being 100.2. She has not taken any antipyretics or pain medications. No history of kidney stones. Review of Systems Review of Systems: All systems reviewed & are unremarkable except as noted in HPI and below [facility] Past Medical History Medical History (Updated 04/15/25 @ 18:24 by Kaitlin Bond APRN) Hypertension Surgical History Surgical History (Updated 04/14/25 @ 19:24 by Sarkis Rodriguez MD) No pertinent past surgical history Social History Social History Smoking status: Never smoker Alcohol intake: current Drinks per week: 1 Substance use: never Lack of Transportation: No Lack of Food: Never True Current Housing: I Have Housing Concerned About Future Housing: No Difficulty Paying Gas/Electric Bills: No Difficulty Paying for Meds: No Currently Unemployed: No Education: Bachelor's Degree Difficulty w/ Childcare or Family Care: No Spiritual care concerns: No Meds Home Medications and Allergies Home Medications ?Medication ?Instructions ?Recorded ?Confirmed ?Type albuterol sulfate 90 mcg/actuation 2 puff inhalation Q8H PRN 04/14/25 04/14/25 History aerosol inhaler shortness of breath or wheezing fluticasone fur. 100 mcg-umeclid 1 inh inhalation Q24H PRN 04/14/25 04/14/25 History 62.5 mcg-vilant 25 mcg shortness of breath or wheezing inhalat.powder (Trelegy Ellipta) metoprolol succinate 25 mg 25 mg PO DAILY 04/14/25 04/14/25 History tablet,extended release 24 hr verapamil 180 mg tablet,extended 180 mg PO DAILY 04/14/25 04/14/25 History release Allergies Allergy/AdvReac Type Severity Reaction Status Date / Time No Known Allergies Allergy Verified 04/14/25 16:50 Vital Signs Vital Signs - 24 hr 04/14/25 18:23 04/14/25 18:30 04/14/25 18:31 Temperature Pulse Rate 99 101 H 103 H Respiratory Rate 21 H 23 H 24 H Blood Pressure 164/75 H Pulse Oximetry 94 91 93 Oxygen Delivery 04/14/25 18:45 04/14/25 18:58 04/14/25 20:15 Temperature Pulse Rate 100 103 H 95 Respiratory Rate 29 H 18 Blood Pressure Pulse Oximetry 98 Oxygen Delivery 04/14/25 20:21 04/14/25 20:45 04/14/25 21:00 Temperature 99.5 F Pulse Rate 95 106 H Respiratory Rate 18 22 H Blood Pressure 182/81 H Pulse Oximetry 98 Oxygen Delivery Room Air 04/14/25 21:00 04/14/25 22:00 04/14/25 23:15 Temperature Pulse Rate 100 96 101 H Respiratory Rate 20 Blood Pressure Pulse Oximetry Oxygen Delivery 04/14/25 23:24 04/15/25 00:00 04/15/25 00:00 Temperature 99.9 F H Pulse Rate 105 H 113 H Respiratory Rate 22 H 24 H Blood Pressure 172/81 H Pulse Oximetry 94 Oxygen Delivery Room Air 04/15/25 00:00 04/15/25 02:00 04/15/25 04:00 Temperature 100.3 F H Pulse Rate 104 H 98 109 H Respiratory Rate 22 H Blood Pressure 183/75 H Pulse Oximetry 100 Oxygen Delivery 04/15/25 04:00 04/15/25 04:00 04/15/25 04:07 Temperature 100.3 F H Pulse Rate 102 H Respiratory Rate Blood Pressure Pulse Oximetry Oxygen Delivery Room Air 04/15/25 04:15 04/15/25 04:46 04/15/25 06:00 Temperature Pulse Rate 104 H 95 Respiratory Rate Blood Pressure 150/77 H Pulse Oximetry Oxygen Delivery 04/15/25 07:35 04/15/25 08:00 04/15/25 10:00 Temperature 99.2 F Pulse Rate 96 70 78 Respiratory Rate 18 Blood Pressure 137/68 Pulse Oximetry 99 Oxygen Delivery 04/15/25 12:00 04/15/25 12:00 04/15/25 13:50 Temperature 99.1 F Pulse Rate 79 82 92 Respiratory Rate 24 H 20 Blood Pressure 178/70 H Pulse Oximetry 100 Oxygen Delivery 04/15/25 13:51 04/15/25 14:00 04/15/25 14:01 Temperature Pulse Rate 90 987 H Respiratory Rate 20 Blood Pressure Pulse Oximetry 95 Oxygen Delivery Room Air 04/15/25 15:47 04/15/25 16:00 Temperature 98.8 F Pulse Rate 99 89 Respiratory Rate 20 Blood Pressure 144/63 H Pulse Oximetry 100 Oxygen Delivery Exam Const: General: comfortable and no acute distress Eyes: General: appearance normal, both eyes and all related structures Resp: Effort & Inspection: normal respiratory effort Skin: General skin exam: normal color Neuro: Speech: normal speech Psych: Speech and movement: Normal speech and movement present Results Labs 04/15/25 05:12 04/15/25 05:12 Labs: Short CBC 04/15/25 Range/Units 05:12 WBC 6.5 (4.5-10.0) K/mm3 Hgb 12.2 (12.0-15.0) g/dL Hct 35.8 L (37.0-47.0) % Plt Count 191 (150-375) k/mm3 BMP 04/15/25 05:12 Sodium 134 L Potassium 3.6 Chloride 105 Carbon Dioxide 23 BUN 5 L Creatinine 0.74 Glucose 108 Calcium 9.4 Cardiac Enzymes 04/14/25 04/14/25 04/14/25 Range/Units 16:49 19:43 23:07 Troponin I 0.042 H* 0.048 H* 0.054 H* (0.000-0.034) ng/mL 04/15/25 04/15/25 Range/Units 05:12 09:09 Troponin I 0.065 H* D 0.046 H* D (0.000-0.034) ng/mL Urine 04/14/25 Range/Units 17:39 Urine Color Dark red H (Yellow) Urine Appearance Turbid H (Clear) Urine pH 6.5 (5.0-9.0) Ur Specific [place] 1.015 (1.001-1.035) Urine Protein 3+ H (Negative) mg/dL Urine Glucose (UA) Negative (Negative) mg/dL
[2025-04-15] MEDS: cefTRIAXone 1 GM in SODIUM CHLORIDE 0.9% IV 50 ML 100 ML IVPB (18:53)
[2025-04-16] VITALS (16 sets, daily range): BP systolic 128–141; BP diastolic 58–69; PULSE 65–95; RESP 16–20; TEMP 37.1–37.6; O2SAT 95–99
[2025-04-16 04:40] LABS: Anion Gap 7 mmol/L (4-12); Blood Urea Nitrogen 7 mg/dL (7-17); Calcium 9.1 mg/dL (8.4-10.2); Carbon Dioxide 23 mmol/L (22-30); Chloride 109 mmol/L (98-107); Estimated CRCL calculation 72 ml/min; Estimated Glomerular Filt Rate > 60; Glucose 98 mg/dL (65-110); Magnesium 1.9 mg/dL (1.6-2.3); Potassium 3.6 mmol/L (3.4-5.0); Sodium 139 mmol/L (137-145)
[2025-04-16] MEDS: METOPROLOL SUCCINATE EXT REL 25 MG TABCR PO (09:30)
[2025-04-16] MEDS: VERAPAMIL HCL 180 MG TABLET ER PO (09:31)
[2025-04-16] MEDS: ASPIRIN 81 MG CHEWABLE TABLET PO (09:32)
--- NOTE | 2025-04-16 14:43 | P.DS_ITS ---
DS: Admitting Diagnosis Discharge Date 04/16/25 Admitting Diagnosis Left flank pain, left lower quadrant abdominal pain DS: Discharge Diagnosis Discharge Diagnosis (1) Elevated troponin: Code(s): R79.89 - Other specified abnormal findings of blood chemistry Status: Acute (2) Dyspnea on exertion: Code(s): R06.09 - Other forms of dyspnea Status: Acute (3) Pyelonephritis: Code(s): N12 - Tubulo-interstitial nephritis, not specified as acute or chronic Status: Acute DS: Summary Hospital Course Reason for hospitalization: 74yo female with HTN who presents to [facility] ER on 04/14/2025 with left lower quadrant pain, left flank pain, nausea, productive cough, low-grade fever 100.2, urine is dark in color. Please see H&P for details. Hospital Course: UA wais consistent with UTI. UCx collected. No BCx collected. CT Abd/Pelvis showing no nephrolithiasis or obstructive uropathy but did show mild left perinephric stranding and asymmetric bladder wall thickening. Cystoscopy was recommended. Urology consulted with plans for outpatient evaluation. Rocephin started. WBC normal and remained normal. She is still having intermittent hematuria to suggest hemorrhagic cystitis. Back pain slowly improved. Troponin was elevated to 0.06. EKG with evidence of left ventricular hypertrophy. BNP 1000. CXR clear. Patient without chest pain. Cardiology consultation conducted from ER. Aspirin given in ED. We continued home metoprolol and verapamil. BP improved with SBP 120-150 range. Echo showing EF 70%, grade I diastolic dysfunction and LVH. Total chol 173 with LDL 71 and HDL 61. Patient also with abnormal lung exam. Patient has presumed asthma. Remotely, patient was prescribed an albuterol inhaler and also uses Trelegy prn prescribed by her primary doctor for complaint of intermittent shortness of breath. She has never had any lung function test. She is nonsmoker and not exposed to secondhand smoke. Quad viral screen negative. Wheezing noted and treated with bronchodilators with improvement. Encouraged her to establish with a Primary Care Provider (she gets her medications from her anesthesiologist currently). Discharge instructions were discussed with the patient in detail. All questions were answered. She overall did well and was able to be discharged home on 04/16/2025. Status at Discharge Cognitive/behavioral status at discharge: stable Time Spent with Patient Time attestation: Total time spent providing and/or coordinating discharge services: 34 minutes Time spent: Greater than 30 minutes Exam Narrative: AF 98.7 134/69 68 16 97% ra Gen - NARD Chest - faint wheezes with improved air exchange CV - RRR S1/S2. Telemetry showing no significant dysrhythmias Abd - Soft, NT/ND, Positive BS Ext - trace pedal edema Neuro - Alert and oriented. Nonfocal exam. Psych - Nml mood and affect Skin - Warm and dry DS: Data Data Completed and Pending Labs on day of discharge: Labs from last 24 hours 04/16/25 04:02 Sodium 139 Potassium 3.6 Chloride 109 H Carbon Dioxide 23 Anion Gap 7 BUN 7 Creatinine 0.72 Estim Creat Clear Calc 72 Estimated GFR > 60 Glucose 98 Calcium 9.1 Magnesium 1.9 Discharge Plan Discharge Attending physician on discharge: Kelvin Brooks Consulting providers: Vicki Garnett; Raymond Martinez Discharging Clinician: Kelvin Brooks Anticipated Discharge Date/Time: 04/16/25 15:01 Patient Disposition: Home Activity: as tolerated Diet: heart healthy Discharge Instructions: Continue to use Albuterol 3-4x/day for the next few days then change to using as needed Check blood pressure 1 to 2 times a day. Record and bring into your doctor for review. Call your doctor if your blood pressure is greater than 180/110. Please complete your antibiotic course even if you are starting to feel well. Take precautions to avoid falls. Rise slowly from a lying or sitting position. Pause before standing or walking. Contact your doctor or call 911 and come to the Emergency Room if you have difficulty voiding, fevers or other worrisome symptoms. Avoid NSAIDs (ibuprofen, naproxen, Aleve). Tylenol is safe to take. Follow-up with your primary care provider in 1-2 weeks. Please call for appointment and talk about lung function testing. Follow-up with Cardiology in 3-4 weeks for outpatient stress test. Please call for an appointment. Follow-up with Urology in 2-3 weeks. Please call for appointment. Thank you for using [facility] for your health care needs. Patient Instructions: Antibiotic Form, Heart Failure (GEN) Patient Language: Portuguese Stand Alone Forms: General Discharge Information Follow-up/Referrals: Raymond Martinez MD [Physician] - Call for Appointment PHYSICIAN,[employer]NU[employer] GRINDER AND SCREENER [Primary Care Provider] - Call for Appointment Valorie Lombardi MD [Physician] - Call for Appointment Discharge Medications: New amoxicillin-pot clavulanate 875-125 mg tablet 1 tablet PO Q12H Qty: 10 0RF aspirin [Children's Aspirin] 81 mg Tablet,Chewable 81 mg PO DAILY@0800 Qty: 30 0RF Continued albuterol sulfate 90 mcg/actuation HFA aerosol inhaler 2 puff INHALATION Q8H PRN (Reason: shortness of breath or wheezing) Trelegy Ellipta 100-62.5-25 mcg blister with device 1 inh INHALATION Q24H PRN (Reason: shortness of breath or wheezing) metoprolol succinate 25 mg tablet extended release 24 hr 25 mg PO DAILY verapamil 180 mg tablet extended release 180 mg PO DAILY Date of admission: 04/15/25 09:59 Primary Care Provider: PHYSICIAN,[employer]NU[employer] GRINDER AND SCREENER Admitting Provider: Radha Rai Attending physician on admission: Radha Rai Condition: Stable Hospitalist MIPS Heart Failure (Exclusion) Patient has history of Heart Transplant or Left Ventricular Assistive Device?: No IF YES, STOP HERE Heart Failure (Qualifier) Patient has current or prior documentation of LVEF less than or equal to 40%, or mod/servere depressed LVSF?: No IF NO, STOP HERE
--- NOTE | 2025-04-22 08:54 | PC.NURSE ---
Urine cx shows E. coli. DC on Amoxicillin Cul which is susceptible. Dr. Brooks aware of findings.
== END 2025-04-16 16:17 | disposition home or self-care (01) | DRG 690 ==
LOC: ANHED 19:26 → ANHIMU 20:51
PROVIDERS: Internal Medicine Interventional Cardiology; Physician Assistant; Registered Nurse; Admitting Provider General Practice; Emergency Provider Emergency Medicine; Visit Provider Internal Medicine
DX: N10 Acute pyelonephritis (principal); I10 Essential (primary) hypertension; J45.909 Unspecified asthma, uncomplicated
CPT/HCPCS: 36415; 71046; 74176; 80048; 80053; 80061; 81001; 83735; 83880; 84484; 85025; 87086; 87637; 93005; 93306; 94640; 96365; 96367; 96375; 99285; A9270; G0378; J0696; J7030